=== PATIENT | male | born 1955 | race Hispanic/Latino ===

== ENCOUNTER 2017-01-27 20:41 | Observation (INO) | payer SELFPAY ==
--- NOTE | 2017-01-27 21:19 | ED PDOC ---
HPI: Trauma/Fall - HPI Time Seen by Provider: 01/27/17 21:08 Chief Complaint (Nursing): Trauma Chief Complaint (Provider): ETOH, Fall History Per: Patient Additional Complaint(s): 61 yo male, denies any PMH, presents to ED for evaluation of ETOH intoxication and a fall. Pt with abrasions to lips and right cheek and forehead, denies any LOC or pain at this time. Pt awake and alert, denies any pain. Past Medical History Reviewed: Nursing Documentation, Vital Signs Vital Signs: Last Vital Signs Temp 96.2 F L 01/27/17 20:42 Pulse 93 H 01/27/17 20:42 Resp 16 01/27/17 20:42 BP 153/89 H 01/27/17 20:42 Pulse Ox 95 01/27/17 20:42 - Medical History PMH: No Chronic Diseases - Surgical History Surgical History: No Surg Hx - Family History Family History: States: Unknown Family Hx - Social History Alcohol: Social - Immunization History Hx Tetanus Toxoid Vaccination: No Hx Influenza Vaccination: No Hx Pneumococcal Vaccination: No - Home Medications Home Medications: Ambulatory Orders Medication Instructions Recorded No Known Home Med [No Known Home 11/17/14 Med] - Allergies Allergies/Adverse Reactions: Allergies Allergy/AdvReac Type Severity Reaction Status Date / Time No Known Allergies Allergy Verified 10/03/16 17:28 Review of Systems ROS Statement: Except As Marked, All Systems Reviewed And Found Negative Skin: Positive for: Other (abrasions) Physical Exam - Reviewed Nursing Documentation Reviewed: Yes Vital Signs Reviewed: Yes - Physical Exam Appears: Positive for: Well, Non-toxic, No Acute Distress Head Exam: Positive for: ATRAUMATIC, NORMAL INSPECTION, NORMOCEPHALIC Skin: Positive for: Normal Color, Warm, DRY Eye Exam: Positive for: EOMI, Normal appearance, PERRL ENT: Positive for: Normal ENT Inspection Neck: Positive for: Normal, Painless ROM Cardiovascular/Chest: Positive for: Regular Rate, Rhythm Respiratory: Positive for: CNT, Normal Breath Sounds Gastrointestinal/Abdominal: Positive for: Normal Exam, Bowel Sounds, Soft Back: Positive for: Normal Inspection Extremity: Positive for: Normal ROM Neurologic/Psych: Positive for: Alert, Oriented Comments: superficial abrasions to right forehead, cheek and lips. - Laboratory Results Result Diagrams: 01/27/17 21:33 01/27/17 21:33 - ECG O2 Sat by Pulse Oximetry: 95 Medical Decision Making Medical Decision Making: Diagnostics ordered. ETOH 340 CT Maxillofacial: FINDINGS: Bones/joints: Degenerative changes of cervical spine. Chronic deformity LEFT zygomatic arch. Chronic deformity medial wall of LEFT orbit. Acute on chronic fracture RIGHT nasal bone. Acute on chronic fracture LEFT nasal bone. Fracture nasal septum. Soft tissues: Mild facial soft tissue swelling. Orbits: Unremarkable as visualized. Sinuses: Scattered mild mucosal thickening. No air-fluid levels. Dental: Dental caries. IMPRESSION: 1. Nasal fractures. 2. Incidental/non-acute findings are described above. CT Head:FINDINGS: Brain: [id number] atrophy. No intracranial hemorrhage. No mass. No edema. Ventricles: No hydrocephalus. Bones/joints: No calvarial fracture. Soft tissues: Unremarkable. Mastoid air cells: No mastoid effusion. Sella: Enlarged sella with CSF density, stable. IMPRESSION: 1. No intracranial hemorrhage. 2. See facial bone CT report for additional details. 3. Incidental/non-acute findings are described above. Pt asleep at 2300. Placed in ED-Obs Pt on re-eval, awake and alert. Tolerating PO water and ambulated to restroom without difficulty Disposition - Clinical Impression Clinical Impression: Alcohol intoxication, Facial contusion - Patient ED Disposition Is Patient to be Admitted: No - Disposition Disposition: Routine/Home Disposition Time: 06:00 Condition: GOOD - POA Present On Arrival: Falls Or Trauma
[2017-01-27 21:36] LABS: BASO # 0.1 K/uL (0.0-0.2); EOS # 0.7 K/uL (0.0-0.7); EOS % 7.7 % (0.0-4.0); LYMPH % 31.6 % (20.0-40.0); MEAN CORPUSCULAR HEMOGLOBIN 31.9 pg (27.0-31.0); MEAN CORPUSCULAR HGB CONC 33.9 g/dL (33.0-37.0); MEAN PLATELET VOLUME 7.2 fl (7.2-11.7); MONO # 0.5 K/uL (0.0-0.8); MONO % 5.5 % (0.0-10.0); NEUT # 5.2 K/uL (1.8-7.0); NEUT % 54.2 % (50.0-75.0); RED CELL DISTRIBUTION WIDTH 13.6 % (11.5-14.5); WHITE BLOOD COUNT 9.6 K/uL (4.8-10.8)
[2017-01-27 21:47] LABS: ALKALINE PHOSPHATASE 84 U/L (38-126); ALT/SGPT 29 U/L (21-72); AST/SGOT 32 U/L (17-59); BILIRUBIN,TOTAL 0.5 mg/dl (0.2-1.3); BLOOD UREA NITROGEN 16 mg/dl (9-20); CALCIUM 8.3 mg/dL (8.4-10.2); CARBON DIOXIDE 25 mmol/L (22-30); CHLORIDE 109 mmol/L (98-107); GFR AFRICAN-AMERICAN > 60; GLUCOSE,RANDOM 151 mg/dL (75-110); POTASSIUM 3.7 MMOL/L (3.6-5.0); SODIUM 147 mmol/l (132-148); TOTAL PROTEIN 8.1 G/DL (6.3-8.2)
[2017-01-27 21:59] LABS: ALCOHOL SERUM 340 mg/dl (0-10)
--- NOTE | 2017-01-27 22:17 | CT ---
EXAM: CT Head Without Intravenous Contrast. CLINICAL HISTORY: 61 years old, male; Injury or trauma; Fall; Initial encounter; Concussion / head injury; Consciousness not specified; Additional info: Fall (+) ETOH. TECHNIQUE: Axial computed tomography images of the head/brain without intravenous contrast. This CT exam was performed using one or more of the following dose reduction techniques: automated exposure control, adjustment of the mA and/or kV according to patient size, and/or use of iterative reconstruction technique. Coronal and sagittal reformatted images were created and reviewed. COMPARISON: CT - HEAD W/O CONTRAST 10/03/2016 6:47:31 PM FINDINGS: Brain: Iajr-oh-vkrnhulv atrophy. No intracranial hemorrhage. No mass. No edema. Ventricles: No hydrocephalus. Bones/joints: No calvarial fracture. Soft tissues: Unremarkable. Mastoid air cells: No mastoid effusion. Sella: Enlarged sella with CSF density, stable. IMPRESSION: 1. No intracranial hemorrhage. 2. See facial bone CT report for additional details. 3. Incidental/non-acute findings are described above.
--- NOTE | 2017-01-27 22:27 | CT ---
EXAM: CT Maxillofacial Without Intravenous Contrast. CLINICAL HISTORY: 61 years old, male; Injury or trauma; Fall; Initial encounter; Blunt trauma (contusions or hematomas); Cheek bone and forehead and lip/oral cavity; Right; Both upper and lower; Injury date: 01-27-2017; Additional info: Fall S/P ETOH. Sent ed physcian documentation TECHNIQUE: Axial computed tomography images of the face without intravenous contrast. This CT exam was performed using one or more of the following dose reduction techniques: automated exposure control, adjustment of the mA and/or kV according to patient size, and/or use of iterative reconstruction technique. Coronal and sagittal reformatted images were created and reviewed. COMPARISON: No relevant prior studies available. FINDINGS: Bones/joints: Degenerative changes of cervical spine. Chronic deformity LEFT zygomatic arch. Chronic deformity medial wall of LEFT orbit. Acute on chronic fracture RIGHT nasal bone. Acute on chronic fracture LEFT nasal bone. Fracture nasal septum. Soft tissues: Mild facial soft tissue swelling. Orbits: Unremarkable as visualized. Sinuses: Scattered mild mucosal thickening. No air-fluid levels. Dental: Dental caries. IMPRESSION: 1. Nasal fractures. 2. Incidental/non-acute findings are described above.
[2017-01-28 05:44] VITALS: PULSE 83; RESP 17
[2017-01-28 06:10] VITALS: BP 141/83; TEMP 98.2
[2017-01-28 21:30] VITALS: O2SAT 95
== END 2017-01-28 05:35 | disposition home or self-care (01) ==
LOC: H.ER 20:41 → H.EROBSV 21:15
PROVIDERS: ADMIT Emergency Medicine; ATTEND Emergency Medicine
DX: F10.129 Alcohol abuse with intoxication, unspecified (principal); Y90.8 Blood alcohol level of 240 mg/100 ml or more; S00.511A Abrasion of lip, initial encounter; S00.81XA Abrasion of other part of head, initial encounter; W19.XXXA Unspecified fall, initial encounter; Y92.9 Unspecified place or not applicable; S00.83XA Contusion of other part of head, initial encounter
CPT/HCPCS: 70450; 70486; 80053; 85025; 99283; G0378; G0480